=== PATIENT | female | born 1960 | race Caucasian/White ===

== ENCOUNTER 2016-04-23 12:59 | Emergency (ER) | payer SELFPAY ==
[~2016-04-23] VITALS: Ht 162.6 cm; Wt 73.1 kg
[~2016-04-23 12:59] MED LIST: ACETAMINOP160 MG/51 PO; BACTRIM,SEPT1 TABLET PO; INDOCIN25 MG PO; KEFLEX500 MG PO; NAPROSYN500 MG PO; NOHOMEMEDS; PERCOCET 5/31 TABLET PO; PREDNISONE20 MG; TRAMADOL HCL50 MG; ULTRACET1 TABLET PO; ULTRAM50 MG PO
[2016-04-23] MEDS ORDERED: NAPROXEN500 MG PO (14:36)
[2016-04-23 14:46] VITALS: BP 120/70
== END 2016-04-23 14:48 | disposition home or self-care (01) ==
LOC: EME 12:59
DX: S60.222A Contusion of left hand, initial encounter (principal); Z88.5 Allergy status to narcotic agent; W22.09XA Striking against other stationary object, initial encounter; X50.0XXA Overexertion from strenuous movement or load, initial encounter
CPT/HCPCS: 73130; 99281; 99284

== ENCOUNTER 2017-03-21 12:00 | Emergency (ER) | payer SELFPAY ==
[~2017-03-21] VITALS: Ht 162.6 cm; Wt 68.7 kg
[~2017-03-21 12:00] MED LIST changes: +NAPROXEN500 MG PO
[2017-03-21 12:12] VITALS: BP 124/66
== END 2017-03-21 15:15 | disposition left against medical advice (07) ==
LOC: EME 12:00
DX: M25.562 Pain in left knee (principal); M79.662 Pain in left lower leg; Z91.81 History of falling; Y99.0 Civilian activity done for income or pay; Z53.21 Procedure and treatment not carried out due to patient leaving prior to being seen by health care provider

== ENCOUNTER 2017-09-27 12:02 | Emergency (ER) | payer SELFPAY ==
[~2017-09-27] VITALS: Ht 162.6 cm; Wt 71.8 kg
[2017-09-27 12:05] VITALS: BP 111/74
== END 2017-09-27 13:58 | disposition left against medical advice (07) ==
LOC: EME 12:02
DX: M25.561 Pain in right knee (principal); Z53.21 Procedure and treatment not carried out due to patient leaving prior to being seen by health care provider

== ENCOUNTER 2017-09-29 19:14 | Emergency (ER) | payer SELFPAY ==
[~2017-09-29] VITALS: Ht 162.6 cm; Wt 72.0 kg
[2017-09-29] MEDS ORDERED: NORCO 5/3251 TABLET PO (21:16)
[2017-09-29] MEDS ORDERED: NAPROSYN500 MG PO (21:16)
[2017-09-29 21:56] VITALS: BP 112/85
== END 2017-09-29 21:56 | disposition home or self-care (01) ==
LOC: EME 19:14
PROC: 2W3LX1Z Immobilization of Right Lower Extremity using Splint (ICD-10-PCS; principal; 2017-09-29)
DX: S83.91XA Sprain of unspecified site of right knee, initial encounter (principal); W00.0XXA Fall on same level due to ice and snow, initial encounter; Y99.0 Civilian activity done for income or pay; R20.0 Anesthesia of skin; Z88.5 Allergy status to narcotic agent
CPT/HCPCS: 73564; 99281; 99284

== ENCOUNTER 2017-10-03 19:30 | Emergency (ER) | payer OTHER ==
[~2017-10-03] VITALS: Ht 162.6 cm; Wt 71.7 kg
[~2017-10-03 19:30] MED LIST changes: +NORCO 5/3251 TABLET PO
[2017-10-03] MEDS ORDERED: MOTRIN600 MG PO (22:00)
[2017-10-03 22:46] VITALS: BP 100/62
== END 2017-10-03 22:47 | disposition home or self-care (01) ==
LOC: RME 19:30 → EME 19:30 → RME 22:47
DX: S83.91XA Sprain of unspecified site of right knee, initial encounter (principal); Y99.0 Civilian activity done for income or pay; F17.200 Nicotine dependence, unspecified, uncomplicated; Z88.5 Allergy status to narcotic agent
CPT/HCPCS: 73564; 99281; 99283